=== PATIENT | female | born 1930 | race Caucasian/White ===

== ENCOUNTER 2016-07-06 06:26 | Day surgery (SDC) | payer MEDICARE, BC ==
[~2016-07-06 06:26] MED LIST: Sodium Chloride 0.9% 10 ML Syringe FLUSH PRN; Sodium Chloride 0.9% 2.5 ML Syringe FLUSH PRN; ceFAZolin 1 GM in Premix Bag 1 BAG IV ONE
[2016-07-06] MEDS ORDERED: Lactated Ringers 1,000 ML IV SCH (06:45)
--- NOTE | 2016-07-06 07:06 | PCM.PREANE ---
Preanesthetic Assessment - Anesthesia/Transfusion/Family Hx Anesthesia History: Prior Anesthesia Without Reaction Family History of Anesthesia Reaction: No Transfusion History: Prior Transfusion Without Reaction Intubation History: Unknown - Review of Systems General: No Symptoms Pulmonary: No Symptoms Cardiovascular: No Symptoms Gastrointestinal: No symptoms Neurological: No Symptoms Other: Reports: None - Physical Assessment O2 Sat by Pulse Oximetry: 95 Respiratory Rate: 18 Vital Signs: Last Vital Signs Temp 36.6 C 07/06/16 06:41 Pulse 80 07/06/16 06:41 Resp 18 07/06/16 06:41 BP 182/82 H 07/06/16 06:41 Pulse Ox 95 07/06/16 06:41 Height: 1.52 m Weight: 59.421 kg ASA Class: 2 Mental Status: Alert & Oriented x3 Airway Class: Mallampati = 2 Dentition: Reports: Normal Dentition Thyro-Mental Finger Breadths: 3 Mouth Opening Finger Breadths: 2 ROM/Head Extension: Limited/Partial Lungs: Clear to auscultation, Normal respiratory effort Cardiovascular: Regular Rate, Regular Rhythm - Allergies Allergies/Adverse Reactions: Allergies Allergy/AdvReac Type Severity Reaction Status Date / Time Sulfa (Sulfonamide Allergy Hives Verified 07/01/16 09:01 Antibiotics) - Blood Blood Available: No - Anesthesia Plan Pre-Op Medication Ordered: None - Acknowledgements Anesthesia Type Planned: General Anesthesia Pt an Appropriate Candidate for the Planned Anesthesia: Yes Alternatives and Risks of Anesthesia Discussed w Pt/Guardian: Yes Pt/Guardian Understands and Agrees with Anesthesia Plan: Yes PreAnesthesia Questionnaire HEENT History: Reports: Allergic Rhinitis, Other (See Below) Other HEENT History: wears glasses Cardiovascular History: Reports: High Cholesterol, Hypertension Gastrointestinal History: Reports: Other (See Below) Other Gastrointestinal History: occasional heartburn Genitourinary History: Reports: None 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: Hematologic History: Reports: Anemia, Blood Transfusion(s) - Past Surgical History Head Surgeries/Procedures: Reports: None HEENT Surgical History: Reports: Tonsillectomy GI Surgical History: Reports: Appendectomy, Cholecystectomy Female Surgical History: Reports: D&C, Dilitation & Evacuation, Hysterectomy Other Female Surgeries/Procedures: rectocele repair 2001, - SUBSTANCE USE Smoking Status *Q: Never Smoker Recreational Drug Use History: No - HOME MEDS Home Medications: Home Meds Hydrochlorothiazide 25 mg PO DAILY 07/01/16 [History] Lisinopril 2.5 mg PO DAILY 07/01/16 [History] Multivitamin [Multivitamins] 1 tab PO DAILY 07/01/16 [History] Potassium Chloride 10 meq PO DAILY 07/01/16 [History] - CURRENT (IN HOUSE) MEDS Current Meds: Current Medications Lactated Ringer's (Ringers, Lactated) 1,000 mls @ 125 mls/hr IV ASDIRECTED JENA Sodium Chloride (Saline Flush) 10 ml FLUSH ASDIRECTED PRN PRN Reason: Keep Vein Open Sodium Chloride (Saline Flush) 2.5 ml FLUSH ASDIRECTED PRN PRN Reason: Keep Vein Open Discontinued Medications Cefazolin Sodium/Dextrose 1 gm (/ Premix) 50 mls @ 100 mls/hr IV ONETIME ONE Stop: 07/06/16 05:30
[2016-07-06] MEDS ORDERED: Midazolam 1 MG/ML 2 ML SDV ONE (07:19)
[2016-07-06] MEDS ORDERED: fentaNYL 250 MCG/5 ML SDV ONE (07:19)
[2016-07-06] MEDS ORDERED: Ondansetron 4 MG/2 ML SDV ONE (07:19)
[2016-07-06] MEDS ORDERED: Propofol 200 MG/20 ML SDV ONE (07:19)
[2016-07-06] MEDS ORDERED: Lidocaine 2% 5 ML SDV ONE (07:19)
[2016-07-06] MEDS ORDERED: ceFAZolin 1 GM Vial ONE (07:20)
[2016-07-06] MEDS ORDERED: Phenylephrine/Normal Saline 100 MCG/ML 10 ML Syringe ONE (09:46)
[2016-07-06] MEDS ORDERED: Dexamethasone 4 MG/ML 5 ML MDV ONE (09:53)
[2016-07-06] MEDS ORDERED: diphenhydrAMINE 50 MG/ML SDV ONE (09:53)
[2016-07-06] MEDS ORDERED: fentaNYL 100 MCG/2 ML SDV IVPUSH PRN (09:56)
[2016-07-06] MEDS ORDERED: Neostigmine Methylsulfate 1 MG/ML 5 ML Syringe ONE (09:57)
[2016-07-06] MEDS ORDERED: ePHEDrine 50 MG/ML SDV ONE (10:03)
[2016-07-06] MEDS ORDERED: Ketorolac 30 MG/ML SDV IVPUSH PRN (10:19)
[2016-07-06] MEDS ORDERED: Promethazine 25 MG/ML SDV IM PRN (10:19)
[2016-07-06] MEDS ORDERED: Acetaminophen/oxyCODONE 325-5 MG Tab PO PRN (10:19)
[2016-07-06] MEDS ORDERED: Ondansetron 4 MG/2 ML SDV IVPUSH PRN (10:19)
[2016-07-06] MEDS ORDERED: Ketorolac 30 MG/ML SDV IVPUSH ONE (10:19)
[2016-07-06] MEDS ORDERED: Morphine 2 MG/ML Syringe IVPUSH PRN (10:19)
--- NOTE | 2016-07-06 10:30 | PCM.OPNOTE ---
- General Post-Op/Procedure Note Date of Surgery/Procedure: 07/06/16 Operative Procedure(s): Posterior repair with enterocele plication Pre Op Diagnosis: rectocele, grade 3 Post-Op Diagnosis: rectocele, grade 3. enterocele Anesthesia Technique: General ET tube Primary Surgeon: Lurdes Cordoba Fluid Replacement, Intraop: 1,500 Output, Urine Amount: 50 EBL in mLs: 20 Complications: none known Condition: Good Free Text/Narrative:: Intake & Output 07/05/16 07/06/16 07/06/16 22:59 06:59 14:59 Output Total 50 Balance -50 Dictation [id number]
--- NOTE | 2016-07-06 12:51 | OR ---
SURGEON: Lurdes Cordoba M.D. DATE OF PROCEDURE: 07/06/2016 PREOPERATIVE DIAGNOSIS: Grade 3 rectocele, symptomatic. POSTOPERATIVE DIAGNOSIS: Grade 3 rectocele with enterocele, symptomatic. PROCEDURE: Posterior repair with enterocele plication. ESTIMATED BLOOD LOSS: 20 mL. ANESTHESIA: Endotracheal anesthesia. FLUIDS: 1500 mL crystalloid. COMPLICATIONS: None. FINDINGS: Third-degree rectocele with enterocele. DISPOSITION: The patient to PACU, stable. PROCEDURE DETAILS: Ligia is an 86-year-old female who has had ongoing difficulty for the past number of months with a recurrent rectocele. She has had this repaired a number of years ago, but recently she noticed that it seemed that the hernia has recurred and she has been having more difficulty emptying bowels since then. Exam does confirm recurrence of rectocele, probable enterocele. Options have been discussed with her and she prefers to proceed with surgical intervention. Risks of the procedure have been discussed. Proper consent was obtained. She was evaluated by her primary care physician, who felt that she was a reasonable candidate for anesthesia. The patient was taken to the operating room where she underwent general endotracheal anesthesia and was placed in modified dorsal lithotomy position. She was prepped and draped in the usual sterile fashion. SCDs lower extremities. Lopez to gravity. A time-out was performed. Anterior Jovanna was placed to reduce the anterior compartment away from the posterior. At the 5 o'clock and 7 o'clock positions of the introitus, the tissue was grasped with Allis clamps and an inverted wedge of tissue was now excised using a 10 blade scalpel. Hydrodissection was now performed along the posterior vaginal mucosa in the midline. A sagittal incision was created with Metzenbaum scissors just past the level of the defect, which is approximately 2/3rd the length of the vagina. The edges of the mucosa were now grasped in serial fashion with Allis clamps. The underlying muscularis tissue was dissected sharply and bluntly away from the overlying mucosa until stronger tissue was able to be identified laterally on either side. The majority of the defect was actually enterocele. This was now reduced using two pursestring sutures with 2-0 Vicryl reducing this nicely. The tissue was now re-imbricated finding the lateral stronger tissue on either side and using inverted mattress sutures to re-plicate across the remainder of the defect. Rectal exam is now performed. The defect is found to be reduced nicely. Gloves changed. Attention turned to trimming the excess vaginal mucosa and the mucosa was now replicated using 0 Vicryl. The perineorrhaphy portion is now repaired using 3-0 Caprosyn in subcuticular fashion. The patient has tolerated the procedure well overall. Vaginal packing was gently placed. Sponge count and instrument count correct x2. She will go to PACU in stable condition. Specimens to pathology. BONNIE / ALBARO /[id number] MTDD
[2016-07-06] MEDS ORDERED: Sodium Chloride 0.9% 2.5 ML Syringe FLUSH PRN (17:17)
[2016-07-06] MEDS ORDERED: Sodium Chloride 0.9% 10 ML Syringe FLUSH PRN (17:17)
--- NOTE | 2016-07-06 17:23 | PCM.SN ---
- Free Text/Narrative Note: Patient is sitting up at bedside, eating supper and visiting with family. She feels well overall. She denies nausea. Pain is controlled. Explained intraoperative findings and proceeding. Remove catheter, may ambulate this pm. If does well, plan discharge in the morning.
[2016-07-06] MEDS: Docusate Sodium 100 MG Cap PO SCH (21:01)
--- NOTE | 2016-07-06 21:24 | PCM48HPAN ---
Post Anesthesia Note - EVALUATION WITHIN 48HRS OF ANESTHETIC Vital Signs in Normal Range: Yes Patient Participated in Evaluation: Yes Respiratory Function Stable: Yes Airway Patent: Yes Cardiovascular Function Stable: Yes Hydration Status Stable: Yes Pain Control Satisfactory: Yes Nausea and Vomiting Control Satisfactory: Yes Mental Status Recovered: Yes - COMMENTS/OBSERVATIONS Free Text/Narrative:: Pt alert, oriented, cheerful. Denies any nausea or pain. Does not report any anesthesia problems.
--- NOTE | 2016-07-07 07:01 | PCM.SURGPN ---
- General Info Date of Service: 07/07/16 POD#: 1 Functional Status: Reports: pain controlled, tolerating diet, ambulating, urinating - Review of Systems General: Denies: Fever Cardiovascular: Denies: Chest Pain, Palpitations Gastrointestinal: Denies: Abdominal pain, Nausea, Vomiting Genitourinary: Denies: flank pain Musculoskeletal: Reports: no symptoms Neurological: Reports: No Symptoms Psychiatric: Reports: no symptoms - Patient Data Vitals - most recent: Last Vital Signs Temp 36.3 C 07/07/16 04:00 Pulse 87 07/07/16 04:00 Resp 16 07/07/16 04:00 BP 123/59 L 07/07/16 04:00 Pulse Ox 94 L 07/07/16 04:00 Weight - most recent: 59.421 kg I&O - last 24 hours: Intake & Output 07/06/16 07/06/16 07/07/16 14:59 22:59 06:59 Intake Total 3250 1513 1000 Output Total 270 1120 1200 Balance 2980 393 -200 Lab Results last 24 hrs: Laboratory Results - last 24 hr 07/06/16 07/06/16 07/07/16 Range/Units 07:03 07:03 04:37 WBC 7.45 (4.0-11.0) K/uL RBC 4.11 L (4.30-5.90) M/uL Hgb 12.3 10.5 L (12.0-16.0) g/dL Hct 38.0 32.4 L (36.0-46.0) % MCV 92.5 (80.0-98.0) fL MCH 29.9 (27.0-32.0) pg MCHC 32.4 (31.0-37.0) g/dL RDW Std Deviation 46.1 (28.0-62.0) fl RDW Coeff of Maximiliano 14 (11.0-15.0) % Plt Count 275 (150-400) K/uL MPV 10.20 (7.40-12.00) fL Nucleated RBC % 0.0 /100WBC Nucleated RBCs # 0 K/uL Sodium 138 (136-146) mmol/L Potassium 3.9 (3.5-5.1) mmol/L Chloride 102 (98-110) mmol/L Carbon Dioxide 25 (21-31) mmol/L BUN 29 H (6.0-23.0) mg/dL Creatinine 1.0 (0.6-1.5) mg/dL Est Cr Clr Drug Dosing 29.01 mL/min Estimated GFR (MDRD) 52.6 ml/min Glucose 92 (60-110) mg/dL Calcium 9.0 (8.8-10.8) mg/dL Med Orders - Current: Current Medications Docusate Sodium (Colace) 100 mg PO BID JENA Last Admin: 07/06/16 21:01 Dose: 100 mg Ketorolac Tromethamine (Toradol) 15 mg IVPUSH Q6H PRN PRN Reason: Pain (severe 7-10) Stop: 07/11/16 10:19 Morphine Sulfate (Morphine) 2 mg IVPUSH Q2H PRN PRN Reason: Pain (severe 7-10) Ondansetron HCl (Zofran) 4 mg IVPUSH Q6H PRN PRN Reason: Nausea/Vomiting Oxycodone/Acetaminophen (Percocet 325-5 Mg) 1 tab PO Q4H PRN PRN Reason: Pain (moderate 4-6) Last Admin: 07/06/16 22:16 Dose: 1 tab Promethazine HCl (Phenergan) 25 mg IM Q6H PRN PRN Reason: Nausea/Vomiting Sodium Chloride (Saline Flush) 10 ml FLUSH ASDIRECTED PRN PRN Reason: Keep Vein Open Sodium Chloride (Saline Flush) 2.5 ml FLUSH ASDIRECTED PRN PRN Reason: Keep Vein Open Sodium Chloride (Saline Flush) 10 ml FLUSH ASDIRECTED PRN PRN Reason: Keep Vein Open Sodium Chloride (Saline Flush) 2.5 ml FLUSH ASDIRECTED PRN PRN Reason: Keep Vein Open Discontinued Medications Cefazolin Sodium (Ancef) Confirm Administered Dose 1 gm .ROUTE .STK-MED ONE Stop: 07/06/16 07:21 Dexamethasone (Dexamethasone) Confirm Administered Dose 20 mg .ROUTE .STK-MED ONE Stop: 07/06/16 09:54 Diphenhydramine HCl (Benadryl) Confirm Administered Dose 50 mg .ROUTE .STK-MED ONE Stop: 07/06/16 09:54 Ephedrine Sulfate (Ephedrine Sulfate) Confirm Administered Dose 50 mg .ROUTE .STK-MED ONE Stop: 07/06/16 10:04 Fentanyl (Sublimaze) Confirm Administered Dose 250 mcg .ROUTE .STK-MED ONE Stop: 07/06/16 07:20 Fentanyl (Sublimaze) 50 mcg IVPUSH .Q5MIN PRN PRN Reason: Pain Stop: 07/10/16 09:57 Glycopyrrolate () Confirm Administered Dose 1 mg .ROUTE .STK-MED ONE Stop: 07/06/16 09:58 Cefazolin Sodium/Dextrose 1 gm (/ Premix) 50 mls @ 100 mls/hr IV ONETIME ONE Stop: 07/06/16 05:30 Last Admin: 07/06/16 11:16 Dose: Not Given Lactated Ringer's (Ringers, Lactated) 1,000 mls @ 125 mls/hr IV ASDIRECTED JENA Last Admin: 07/06/16 11:34 Dose: 125 mls/hr Ketorolac Tromethamine (Toradol) 15 mg IVPUSH ONETIME ONE Stop: 07/06/16 10:20 Last Admin: 07/06/16 11:30 Dose: Not Given Lidocaine (Xylocaine-Mpf 2%) Confirm Administered Dose 5 ml .ROUTE .STK-MED ONE Stop: 07/06/16 07:20 Midazolam HCl (Versed 1 Mg/Ml) Confirm Administered Dose 2 mg .ROUTE .STK-MED ONE Stop: 07/06/16 07:20 Neostigmine Methylsulfate (Neostigmine) Confirm Administered Dose 5 mg .ROUTE .STK-MED ONE Stop: 07/06/16 09:58 Ondansetron HCl (Zofran) Confirm Administered Dose 4 mg .ROUTE .STK-MED ONE Stop: 07/06/16 07:20 Phenylephrine HCl (Phenylephrine In Ns 100 Mcg/Ml) Confirm Administered Dose 1 mg .ROUTE .STK-MED ONE Stop: 07/06/16 09:47 Propofol (Diprivan 20 Ml) Confirm Administered Dose 200 mg .ROUTE .STK-MED ONE Stop: 07/06/16 07:20 Vecuronium Wynne (Vecuronium) Confirm Administered Dose 10 mg .ROUTE .STK-MED ONE Stop: 07/06/16 07:54 - Exam Wound/Incisions: healing well General: alert, oriented Lungs: Clear to auscultation, Normal respiratory effort Cardiovascular: Regular Rate, Regular Rhythm Abdomen: bowel sounds present, soft. No: CVA tenderness Extremities: no calf tenderness Psy/Mental Status: alert, normal affect - Problem List & Annotations (1) Prolapse of female pelvic organs SNOMED Code(s): 53614021 Code(s): N81.9 - FEMALE GENITAL PROLAPSE, UNSPECIFIED Status: Acute Current Visit: Yes Qualifiers: Prolapse type: rectocele Qualified Code(s): N81.6 - Rectocele - Problem List Review Problem List Initiated/Reviewed/Updated: Yes - My Orders Last 24 Hours: Active Orders 24 hr Category Date Time Status Antiembolic Devices [RC] PER UNIT ROUTINE Care 07/06/16 10:19 Active Communication Order [RC] ROUTINE Care 07/06/16 17:17 Active DC Lopez Catheter [Urinary Catheter Removal] [RC] Per Care 07/06/16 17:17 Active Unit Routine Notify Provider Intake and Out [RC] ASDIRECTED Care 07/06/16 10:19 Active Notify Provider Vital Signs [RC] ASDIRECTED Care 07/06/16 10:19 Active Oxygen Therapy [RC] ASDIRECTED Care 07/06/16 09:59 Active RT Incentive Spirometry [RC] Q2HWA Care 07/06/16 10:19 Active Ready for Discharge [RC] PER UNIT ROUTINE Care 07/07/16 06:55 Ordered Up With Assistance [RC] PER UNIT ROUTINE Care 07/06/16 10:19 Active Up ad Surekha [RC] PER UNIT ROUTINE Care 07/06/16 10:19 Active Vital Signs [RC] PER UNIT ROUTINE Care 07/06/16 10:19 Active Regular Diet [DIET] Diet 07/06/16 Lunch Active Acetaminophen/oxyCODONE [Percocet 325-5 MG] Med 07/06/16 10:19 Active 1 tab PO Q4H PRN Docusate Sodium [Colace] Med 07/06/16 21:00 Active 100 mg PO BID Ketorolac [Toradol] Med 07/06/16 10:19 Active 15 mg IVPUSH Q6H PRN Morphine Med 07/06/16 10:19 Active 2 mg IVPUSH Q2H PRN Ondansetron [Zofran] Med 07/06/16 10:19 Active 4 mg IVPUSH Q6H PRN Promethazine [Phenergan] Med 07/06/16 10:19 Active 25 mg IM Q6H PRN Sodium Chloride 0.9% [Saline Flush] Med 07/06/16 17:17 Active 10 ml FLUSH ASDIRECTED PRN Sodium Chloride 0.9% [Saline Flush] Med 07/06/16 17:17 Active 2.5 ml FLUSH ASDIRECTED PRN Convert IV to Saline Lock [OM.PC] Routine Oth 07/06/16 17:17 Ordered May Take Own Home Medications [OM.PC] Per Unit Routine Oth 07/06/16 10:19 Ordered Perineal Care [OM.PC] Per Unit Routine Oth 07/06/16 10:20 Ordered Peripheral IV Discontinue [OM.PC] Routine Oth 07/06/16 10:19 Ordered Sequential Compression Device [OM.PC] Per Unit Routine Oth 07/06/16 10:19 Ordered Resuscitation Status Routine Resus Stat 07/06/16 10:19 Ordered Medication Orders Docusate Sodium (Colace) 100 mg PO BID JENA Last Admin: 07/06/16 21:01 Dose: 100 mg Ketorolac Tromethamine (Toradol) 15 mg IVPUSH Q6H PRN PRN Reason: Pain (severe 7-10) Stop: 07/11/16 10:19 Morphine Sulfate (Morphine) 2 mg IVPUSH Q2H PRN PRN Reason: Pain (severe 7-10) Ondansetron HCl (Zofran) 4 mg IVPUSH Q6H PRN PRN Reason: Nausea/Vomiting Oxycodone/Acetaminophen (Percocet 325-5 Mg) 1 tab PO Q4H PRN PRN Reason: Pain (moderate 4-6) Last Admin: 07/06/16 22:16 Dose: 1 tab Promethazine HCl (Phenergan) 25 mg IM Q6H PRN PRN Reason: Nausea/Vomiting Sodium Chloride (Saline Flush) 10 ml FLUSH ASDIRECTED PRN PRN Reason: Keep Vein Open Sodium Chloride (Saline Flush) 2.5 ml FLUSH ASDIRECTED PRN PRN Reason: Keep Vein Open Sodium Chloride (Saline Flush) 10 ml FLUSH ASDIRECTED PRN PRN Reason: Keep Vein Open Sodium Chloride (Saline Flush) 2.5 ml FLUSH ASDIRECTED PRN PRN Reason: Keep Vein Open - Assessment Assessment (Free Text/Narrative):: POD 1 status post posterior repair/enterocele repair - Plan Plan (Free Text/Narrative):: Patient is doing well overall--ambulating, voiding, pain controlled. Discharge to home. Discharge instructions reviewed. Infection and bleeding warnings. Follow up at [facility] 2 and 6 weeks.
[2016-07-07 07:58] VITALS: BP 129/60
[2016-07-07] MEDS: Docusate Sodium 100 MG Cap PO SCH (08:09)
== END 2016-07-07 10:05 | disposition home or self-care (01) ==
LOC: MW.SDS 06:26 → MW.MS 11:14 → MW.SDS 07-07 10:05
PROVIDERS: ATTEND Obstetrics & Gynecology
DX: N81.6 Rectocele (principal); N81.5 Vaginal enterocele; N83.201 Unspecified ovarian cyst, right side; I10 Essential (primary) hypertension; E78.5 Hyperlipidemia, unspecified; Z88.2 Allergy status to sulfonamides; Z79.899 Other long term (current) drug therapy; Z90.710 Acquired absence of both cervix and uterus; Z90.49 Acquired absence of other specified parts of digestive tract; Z98.890 Other specified postprocedural states
CPT/HCPCS: 36415; 57250; 57268; 80048; 85014; 85018; 85027; A9270; J0690; J1100; J1200; J2250; J2405; J3010; J7120; 00942; 88305; J2704

== ENCOUNTER 2017-07-01 08:22 | Day surgery (SDC) | payer MEDICARE, BC ==
[~2017-07-01 08:22] MED LIST changes: +Lactated Ringers 1,000 ML IV SCH; +Lidocaine 2% 5 ML SDV ONE; +Propofol 200 MG/20 ML SDV ONE; -Sodium Chloride 0.9% 10 ML Syringe FLUSH PRN; -Sodium Chloride 0.9% 2.5 ML Syringe FLUSH PRN; -ceFAZolin 1 GM in Premix Bag 1 BAG IV ONE
--- NOTE | 2017-07-01 08:51 | PCM.PREANE ---
Preanesthetic Assessment - Anesthesia/Transfusion/Family Hx Anesthesia History: Prior Anesthesia Without Reaction Family History of Anesthesia Reaction: No Transfusion History: Prior Transfusion Without Reaction Intubation History: Unknown - Review of Systems General: No Symptoms Pulmonary: No Symptoms Cardiovascular: No Symptoms Gastrointestinal: No Symptoms Neurological: No Symptoms Other: Reports: None - Physical Assessment NPO Status Date: 06/30/17 Height: 1.55 m Weight: 59.421 kg ASA Class: 2 Mental Status: Alert & Oriented x3 Airway Class: Mallampati = 3 Dentition: Reports: Normal Dentition ROM/Head Extension: Limited/Partial Lungs: Clear to Auscultation, Normal Respiratory Effort Cardiovascular: Regular Rhythm, Tachycardia - Allergies Allergies/Adverse Reactions: Allergies Allergy/AdvReac Type Severity Reaction Status Date / Time simvastatin Allergy Muscle Verified 06/29/17 10:44 Aches Sulfa (Sulfonamide Allergy Hives Verified 06/29/17 10:44 Antibiotics) - Anesthesia Plan Pre-Op Medication Ordered: None - Acknowledgements Anesthesia Type Planned: MAC Pt an Appropriate Candidate for the Planned Anesthesia: Yes Alternatives and Risks of Anesthesia Discussed w Pt/Guardian: Yes Pt/Guardian Understands and Agrees with Anesthesia Plan: Yes Additional Comments: PMH: htn, hx of polio (no post-polio syndrome). limited cervical extension. 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: Musculoskeletal History: Reports: Other (See Below) Other Musculoskeletal History: rt shoulder pain Hematologic History: Reports: Anemia, Blood Transfusion(s) - Past Surgical History Head Surgeries/Procedures: Reports: None HEENT Surgical History: Reports: Tonsillectomy GI Surgical History: Reports: Appendectomy, Cholecystectomy, Colonoscopy Female Surgical History: Reports: D&C, Dilitation & Evacuation, Hysterectomy Other Female Surgeries/Procedures: rectocele repair 2001, - SUBSTANCE USE Smoking Status *Q: Never Smoker Recreational Drug Use History: No - HOME MEDS Home Medications: Home Meds Hydrochlorothiazide 25 mg PO DAILY 07/01/16 [History] Potassium Chloride 10 meq PO DAILY 07/01/16 [History] Lisinopril 20 mg PO DAILY 07/06/16 [History] Cholecalciferol (Vitamin D3) [Vitamin D3] 1,000 units PO DAILY 06/29/17 [History ] - CURRENT (IN HOUSE) MEDS Current Meds: Current Medications Lactated Ringer's (Ringers, Lactated) 1,000 mls @ 125 mls/hr IV ASDIRECTED JENA Last Admin: 07/01/17 08:45 Dose: 125 mls/hr Discontinued Medications Lidocaine (Xylocaine-Mpf 2%) Confirm Administered Dose 5 ml .ROUTE .STK-MED ONE Stop: 07/01/17 07:37 Propofol (Diprivan 20 Ml) Confirm Administered Dose 400 mg .ROUTE .STK-MED ONE Stop: 07/01/17 07:38
--- NOTE | 2017-07-01 09:59 | PCM.OPNOTE ---
- General Post-Op/Procedure Note Date of Surgery/Procedure: 07/01/17 Operative Procedure(s): Colonoscopy Pre Op Diagnosis: Change in bowel habits. Decreased stool caliber. Post-Op Diagnosis: Minimal sigmoid diverticulosis. No evidence of neoplasia. Anesthesia Technique: MAC (ASA II) Primary Surgeon: Homero Martins Condition: Good Free Text/Narrative:: Dictation [id number] CPT CODE [id number]
[2017-07-01] MEDS ORDERED: Lactated Ringers 1,000 ML IV SCH (10:00)
[2017-07-01 10:29] VITALS: BP 104/55
--- NOTE | 2017-07-01 12:15 | PCM48HPAN ---
Post Anesthesia Note - EVALUATION WITHIN 48HRS OF ANESTHETIC Vital Signs in Normal Range: Yes Patient Participated in Evaluation: Yes Respiratory Function Stable: Yes Airway Patent: Yes Cardiovascular Function Stable: Yes Hydration Status Stable: Yes Pain Control Satisfactory: Yes Nausea and Vomiting Control Satisfactory: Yes Mental Status Recovered: Yes Resp Rate: 15
--- NOTE | 2017-07-01 12:15 | PCM.POSTAN ---
POST ANESTHESIA ASSESSMENT - MENTAL STATUS Mental Status: Alert, Oriented - RESPIRATORY Respiratory Status: Respiratory Rate WNL, Airway Patent, O2 Saturation Stable - CARDIOVASCULAR CV Status: Pulse Rate WNL, Blood Pressure Stable - GASTROINTESTINAL GI Status: No Symptoms - POST OP HYDRATION Hydration Status: Adequate & Stable
--- NOTE | 2017-07-01 14:27 | OR ---
SURGEON: Homero Martins M.D. DATE OF PROCEDURE: 07/01/2017 OPERATION PERFORMED: Colonoscopy. ANESTHESIA: MAC. ASA CLASSIFICATION: II. PREOPERATIVE DIAGNOSIS: Change in bowel habits with decreased caliber of stool. POSTOPERATIVE DIAGNOSES: 1. No evidence of neoplasia. 2. Minimal sigmoid diverticulosis. DESCRIPTION OF PROCEDURE: The patient was taken to the endoscopy room and positioned on the endoscopy table in the left lateral decubitus position. Time-out was called for appropriate identification of the patient and procedure. Monitored anesthesia care was provided. The colonoscope was inserted into the rectum and advanced with moderate difficulty to the cecum where the colonoscope was retroflexed to visualize the ascending colon from below. The cecum was identified by internal landmarks and external pressure. After the colonoscope was retroflexed, was then straightened and slowly withdrawn. The cecum, ascending colon, hepatic flexure, transverse colon, splenic flexure, and descending colon showed no tumors, polyps, diverticula, angiodysplasia, or evidence of inflammatory bowel disease. No stricture was identified. As the scope was withdrawn through the sigmoid colon, a couple of small diverticula were noted. No stricture, spasm, or bleeding was noted. No inflammatory changes were noted. The colonoscope was then withdrawn to the rectum and retroflexed to visualize the anal orifice from above. Again, no tumors or polyps were seen. No stricture is identified, and no acute hemorrhoidal changes were noted. The colonoscope was straightened, the rectum aspirated, and the colonoscope removed. The patient tolerated the procedure well and was taken to recovery room in stable condition. DEYVI / ALBARO /[id number]
== END 2017-07-01 10:15 | disposition home or self-care (01) ==
LOC: MW.SDS 08:22
PROVIDERS: ATTEND Surgery
DX: R19.4 Change in bowel habit (principal); K57.30 Diverticulosis of large intestine without perforation or abscess without bleeding; I10 Essential (primary) hypertension; E78.00 Pure hypercholesterolemia, unspecified; Z79.899 Other long term (current) drug therapy
CPT/HCPCS: 45378; J7120; J2704